=== PATIENT | female | born 1995 | race Caucasian/White ===

== ENCOUNTER 2021-03-13 20:18 | Inpatient (IN) ==
[2021-03-13] MEDS ORDERED: LACTATED RINGER'S 1,000 ML IV PRN (20:45)
[2021-03-13] MEDS ORDERED: OXYTOCIN 30 UNITS/500 ML BAG IV PRN (20:45)
[2021-03-13] MEDS ORDERED: PENICILLIN G POTASSIUM 6 MU in DEXTROSE 5% 250 ML IV STA (20:51)
[2021-03-13] MEDS ORDERED: PATIENT'S HEIGHT AND/OR WEIGHT NEEDED SCH (21:00)
--- NOTE | 2021-03-13 21:11 | History & Physical Report ---
Date of Service March 13, 2021 Assessment & Plan (1) Active labor at term: (2) Post term over 40 weeks: (3) Group beta Strep positive: Plan: admit, iv, labs. pcn for gbs positive. states she wants epidural, consult anesthesia. History of Present Illness Chief Complaint: regular painful ctx. Primary Care Provider: Aníbal Mccabe 26yo at 40+wks ega presents to L&D with above cc. SHe notes some on and off mucus d/c since her evaluation this am. She notes ctx are painful now about q3-4min. PNC c/b 1. echo done due to 1/2 sibling with CHD--> wnl 2. GBS Pos urine PNL rh pos, ri, GBS pos OBH: x 1 GYNH: nl paps no stds. Allergies Allergy/AdvReac Type Severity Reaction Status Date / Time No Known Allergies Allergy Verified 03/13/21 20:30 Home Medications Medication Instructions Recorded Confirmed Type prenat.vits,tracie,[id number] 1 tab PO DAILY 07/21/20 03/13/21 History Tums 1 tab PO UNKNOWN PRN 03/13/21 03/13/21 History Patient History Medical History (Updated 03/13/21 @ 21:10 by Awa Lainez MD, FACOG) Asthma Varicella vaccination Surgical History S/P wisdom tooth extraction Family History Brother Congenital heart defect Denies family history of Ovarian cancer Breast cancer Colorectal cancer Social History (Updated 07/21/20 @ 09:59 by Val Freeman) Smoking Status: Never smoker Hx Alcohol Use: No Hx Substance Use: No Preferred Language: Malay Mysql Dba Required: No Beliefs That Will Affect Care: None marital status: marital status details: Avinash Kwan (24) [phone] Current Living Situation: Spouse and Family Current Living Situation Comment: lives with spouse, son, 2 dogs current occupational status: unemployed current occupation: homemaker Feels Safe at Home: Yes Review of Systems as per Subjective / HPI Physical Exam Constitutional: WD/WN, vitals as above Respiratory: normal respiratory effort, lungs clear to auscultation Cardiovascular: Rate/Rhythm: regular rate and regular rhythm Gastrointestinal (Abdomen): soft gravid nt efw 7-8# Musculoskeletal: no edema nontender calves Neurologic: grossly normal Psychiatric: A+Ox3, euthymic affect Genitourinary: Manual OB Exam: + cervical dilation 6 cm, + cervical effacement 100% and + station (bulging membranes) -2 OB Exam Monitor Tracing: + external FHT monitor used, + external uterine monitor used (q4), + category I and + normal FHT variability Results & Data ([facility]) Vital Signs (Past 12 Hours) Vital Signs Temp Pulse Resp BP 03/13/21 20:35 98.1 F 74 18 130/83 03/13/21 20:29 74 130/83 Coding Level of Care Code None Diagnoses Active labor at term Post term over 40 weeks O48.0 Group beta Strep positive B95.1
[2021-03-13] MEDS ORDERED: ePHEDrine sulfate 50 MG/ML AMP ONE (21:29)
[2021-03-13] MEDS ORDERED: SODIUM CHLORIDE 0.9% INJ 10 ML VIAL ONE (21:29)
[2021-03-13] MEDS ORDERED: BUPIVACAINE 0.25% 30 ML VIAL ONE (21:29)
[2021-03-13] MEDS ORDERED: fentaNYL citrate 100 MCG/2 ML VIAL ONE (21:30)
[2021-03-13] MEDS ORDERED: fentaNYL 2MCG/ML ROPIVACAINE 1.25MG/ML 100 ML BAG EPI ONE (21:30)
[2021-03-13 21:36] LABS: Hematocrit (blood only) 39.3 % (37-47); Hemoglobin 13.3 g/dL (12.0-16.0); Mean Corpuscular Hemoglobin 31.7 pg (25-34); Mean Corpuscular Hgb Conc 33.8 g/dL (32-36); Mean Corpuscular Volume 93.8 fL (80-100); Mean Platelet Volume 10.8 fL (7.4-10.4); Platelet Count 239 K/uL (130-400); RDW Coefficient of Variation 13.5 % (11.5-14.5); RDW Standard Deviation 46.5 fL (36.4-46.3); Red Blood Count 4.19 M/uL (4.2-5.4); White Blood Count 11.11 K/uL (4.8-10.8)
--- NOTE | 2021-03-13 22:23 | Anesthesiology Consultation ---
Date of Service March 13, 2021 Assessment & Plan (1) Encounter for pre-operative examination: Chart Review Chart Review: Patient NOT seen in Pre Admission Testing and Acceptable Risk for Labor Epidural Consults Requested none ASA ASA2 Proposed Anesthesia Anesthesia Type: Labor Epidural Risk / Benefits Reviewed With: PT / POA / Parent / Guardian, Accepts Plan and Informed Consent Obtained History Height/Weight Height: 5 ft 6 in Weight: 78.018 kg Allergies Allergy/AdvReac Type Severity Reaction Status Date / Time No Known Allergies Allergy Verified 03/13/21 20:30 Medications Home Medications Medication Instructions Recorded Confirmed Last Taken prenat.vits,tracie,six-[id number] 1 tab PO DAILY 07/21/20 03/13/21 03/12/21 20:00 Tums 1 tab PO UNKNOWN PRN 03/13/21 03/13/21 03/13/21 08:00 Active Medications Generic Name Dose Route Start Last Admin Trade Name Freq PRN Reason Stop Dose Admin Lactated Ringer's 1,000 mls @ 125 mls/hr 03/13/21 20:45 03/13/21 20:55 Lr IV 03/15/21 20:44 125 mls/hr .Q8H PRN Administration L&D Protocol Protocol Past Medical History Medical History (Updated 03/13/21 @ 22:23 by Tushar Wheat MD) Asthma Varicella vaccination Exercise / Class Metabolic Activity II 4-5 Yardwork/Stairs/Walk up hill Past Family History Family History Brother Congenital heart defect Denies family history of Ovarian cancer Breast cancer Colorectal cancer Past Surgical History Surgical History S/P wisdom tooth extraction Past Anesthesia History No Hx of Anesthesia Complications and No Family Hx of Anesthesia Complications History of PONV No Hx of PONV and No Hx of Motion Sickness Social History Smoking Status: Never smoker Hx Alcohol Use: No Hx Substance Use: No substance use type: does not use Physical Exam Vital Signs Last Vital Signs Temp 36.7 C 03/13/21 20:35 Pulse 93 H 03/13/21 22:20 Resp 18 03/13/21 20:35 BP 120/62 03/13/21 22:20 Pulse Ox 99 03/13/21 22:17 ENMT Mouth: no dentition abnormality Thyromental Distance: > or= 3.5 Finger Breadths Mallampati Class: II Neck normal visual inspection Respiratory normal respiratory effort Auscultation: lungs clear to auscultation bilaterally Cardiovascular Rate/Rhythm: regular rate and regular rhythm Psychiatric Orientation: alert Testing Laboratory Results 03/13/21 21:01
[2021-03-13] MEDS ORDERED: NALBUPHINE HCL INJ 10 MG/ML AMP IV PRN (22:24)
[2021-03-13] MEDS ORDERED: fentaNYL 2MCG/ML ROPIVACAINE 1.25MG/ML 100 ML BAG EPI PRN (22:24)
[2021-03-13] MEDS ORDERED: ePHEDrine sulfate 50 MG/ML AMP IV PRN (22:24)
[2021-03-13] MEDS ORDERED: diphenhydrAMINE 50 MG/ML VIAL IV PRN (22:24)
[2021-03-13] MEDS ORDERED: ONDANSETRON INJ 2 MG/ML 2 ML VIAL IV PRN (22:24)
[2021-03-13] MEDS ORDERED: NALOXONE HCL 0.4 MG/1 ML VIAL/CARP IV PRN (22:24)
[2021-03-13] MEDS ORDERED: NALOXONE HCL 1 MG in SODIUM CHLORIDE 0.9% 1000ML 1,000 ML IV PRN (22:24)
[2021-03-13] MEDS ORDERED: PROMETHAZINE HCL 6.25 MG in SODIUM CHLORIDE 0.9% 50 ML IV PRN (22:24)
[2021-03-13] MEDS ORDERED: PENICILLIN G POTASSIUM 3 MU in DEXTROSE 5% 100 ML IV PRN (23:47)
--- NOTE | 2021-03-14 02:05 | Labor Progress Brief Note ---
Date of Service March 14, 2021 Subjective pt with urge to push. called by nursing 2nd dose of abx just infused and srom, clear fluid. sve per nurse 10cm Constitutional: as per Subjective / HPI Assessment & Plan (1) Post term over 40 weeks: (2) Active labor at term: (3) Group beta Strep positive: Plan: pt with good efforts with pushing, cont 2nd stage. fhts categ 1. Physical Exam Genitourinary: Manual OB Exam: + cervical dilation 10 cm, + cervical effacement 100% and + station + 1 OB Exam Monitor Tracing: + external FHT monitor used, + external uterine monitor used (q2), + category I and + normal FHT variability good effort with pushing Results & Data ([facility]) Vital Signs (Past 12 Hours) Vital Signs Temp Pulse Resp BP Pulse Ox 03/14/21 01:58 109 H 85 L 03/14/21 01:57 121 H 99 03/14/21 01:53 90 93 03/14/21 01:52 102 H 100 03/14/21 01:47 89 99 03/14/21 01:42 96 H 99 03/14/21 01:41 91 H 118/55 L 03/14/21 01:37 100 H 97 03/14/21 01:32 81 96 03/14/21 01:27 75 95 03/14/21 01:25 83 103/57 L 03/14/21 01:22 79 96 03/14/21 01:17 75 97 03/14/21 01:12 78 106/55 L 96 03/14/21 01:07 74 96 03/14/21 01:02 74 96 03/14/21 00:57 76 97 03/14/21 00:55 75 92/55 L 03/14/21 00:52 83 96 03/14/21 00:49 98.4 F 16 03/14/21 00:47 85 99 03/14/21 00:42 89 98 03/14/21 00:40 82 99/56 L 03/14/21 00:37 80 96 03/14/21 00:32 76 96 03/14/21 00:27 83 97 03/14/21 00:25 82 117/66 03/14/21 00:22 80 98 03/14/21 00:17 84 98 03/14/21 00:12 94 H 98 03/14/21 00:11 90 120/71 03/14/21 00:07 97 H 98 03/14/21 00:02 88 99 03/13/21 23:57 87 99 03/13/21 23:56 85 132/86 03/13/21 23:52 88 100 03/13/21 23:47 85 99 03/13/21 23:42 80 99 03/13/21 23:40 80 115/64 03/13/21 23:37 70 98 03/13/21 23:32 75 100 03/13/21 23:27 79 99 03/13/21 23:25 70 117/61 03/13/21 23:22 77 99 03/13/21 23:17 73 98 03/13/21 23:12 71 98 03/13/21 23:11 75 111/60 03/13/21 23:10 98.4 F 18 03/13/21 23:07 84 98 03/13/21 23:02 79 100 03/13/21 22:57 79 98 03/13/21 22:56 88 127/73 03/13/21 22:52 75 98 03/13/21 22:47 75 97 03/13/21 22:42 82 124/70 99 03/13/21 22:37 85 99 03/13/21 22:32 85 97 03/13/21 22:27 86 98 03/13/21 22:25 81 128/66 03/13/21 22:22 84 98 03/13/21 22:20 93 H 120/62 03/13/21 22:18 86 119/64 03/13/21 22:17 87 99 03/13/21 22:14 83 142/83 H 03/13/21 22:12 94 H 99 03/13/21 22:07 65 100 03/13/21 22:02 86 98 03/13/21 21:57 92 H 98 03/13/21 21:52 81 98 03/13/21 21:47 84 99 03/13/21 21:42 87 98 03/13/21 21:37 70 99 03/13/21 21:32 70 99 03/13/21 21:27 85 98 03/13/21 21:22 81 99 03/13/21 20:35 98.1 F 74 18 130/83 10/31/21 20:29 74 130/83 Coding Level of Care Code None Diagnoses Post term over 40 weeks O48.0 Active labor at term Group beta Strep positive B95.1
--- NOTE | 2021-03-14 04:41 | Delivery Summary ---
Vaginal Delivery Summary Date of Service March 14, 2021 Vaginal Delivery Summary The patient dilated to complete and pushed to deliver a viable male infant Apgars 8 and 9 via over intact perineum. Mouth and nose bulb suctioned at perineum. Shoulders and body delivered with ease. Infant was vigorous and crying at . Cord clamped at 30 seconds of life and to maternal abdomen where the cord was then doubly clamped and cut. Placenta delivered spontaneously and intact, three-vessel cord. Hemostasis achieved with dilute pitocin and uterine massage. Small periclitoral tear was bleeding and required a single interrupted suture of 3-0 vicryl for excellent hemostasis. Cervix and sulci intact. EBL 300 cc. Mother and baby stable recovery. [facility] Vaginal Delivery Charge Vaginal Delivery Codes: 76985 global code for the antepartum, delivery, and post- Delivery Type Details:
[2021-03-14] MEDS ORDERED: oxyCODONE/ACETAMINOPHEN 5mg/325mg TAB PO PRN (04:51)
[2021-03-14] MEDS ORDERED: HYDROCORTISONE ACETATE 25 MG SUPP PR PRN (04:51)
[2021-03-14] MEDS ORDERED: SUPERCREAM 0.870% 15 GM JAR EXT PRN (04:51)
[2021-03-14] MEDS ORDERED: DIPHTHERIA/TETANUS/PERTUSSIS 0.5 ML SYR/VIAL IM ONE (04:51)
[2021-03-14] MEDS ORDERED: OXYTOCIN 30 UNITS/500 ML BAG IV PRN (04:51)
[2021-03-14] MEDS ORDERED: OXYTOCIN 20 UNITS in LACTATED RINGER'S 1,000 ML IV SCH (04:51)
[2021-03-14] MEDS ORDERED: BENZOCAINE 20% AER SPR 82.5 GM CAN EXT PRN (04:51)
[2021-03-14] MEDS: PRENATAL VITAMIN 1 TAB PO SCH (08:31)
[2021-03-14] MEDS: DOCUSATE SODIUM 100 MG CAP PO SCH ×2 (08:31→20:15)
--- NOTE | 2021-03-14 09:30 | Anesthesia Procedure Note ---
Date of Service March 14, 2021 Anesthesia Post Epidural Note Vital Signs Vital Signs: Temp Pulse Resp BP Pulse Ox 36.7 C 71 16 129/81 76 L 03/14/21 07:55 03/14/21 07:55 03/14/21 07:55 03/14/21 07:55 03/14/21 04:18 Notes Mental Status: alert / awake / arousable and participated in evaluation Nausea / Vomiting: adequately controlled Pain: adequately controlled Airway Patency, RR, SpO2: stable & adequate BP & HR: stable & adequate Hydration State: stable & adequate Neuraxial Anesthesia: was administered and sensory block is resolving Anesthetic Complications: no major complications apparent and Pt Satisfied with anesthetic care Epidural: Removed without complications and With tip intact
[2021-03-14] MEDS: IBUPROFEN 600 MG TAB PO PRN ×3 (10:29→22:22)
[2021-03-14] MEDS: ACETAMINOPHEN 325 MG TAB PO PRN ×2 (12:36→19:52)
[2021-03-15] MEDS: IBUPROFEN 600 MG TAB PO PRN ×2 (05:01→11:32)
--- NOTE | 2021-03-15 06:38 | Obstetrical Progress Note ---
Date of Service <Lucia Turner DO - Last Filed: 03/15/21 06:59> March 15, 2021 Assessment & Plan <Lucia Turner DO - Last Filed: 03/15/21 06:59> (1) Encounter for care and examination after delivery: 26 yo post op day1 from [facility], doing well. -Continue routine post care. -vital signs reviewed and WNL (Tmax 36.4) -Blood Type O+, GBS+, Rubella Immune -Encourage ambulation, monitor and control pain with Motrin, tylenol PRN, resume regular diet, monitor lochia -encourage breast feeding -hemoglobin 13.3 -patient comfortable with going home today Day #:: 1 <Chelsy Law, - Last Filed: 03/15/21 07:51> (1) Encounter for care and examination after delivery: Subjective <Lucia Turner - Last Filed: 03/15/21 06:59> Ambulation: ambulating normally Voiding: no voiding problems Passing Gas:: Yes Diet Tolerance:: regular diet Lochia:: Small Feeding Type:: breast feeding Current Pain Level(1-10): 1 (pain well controlled on medication) Review of Systems Denies fever, chills, sweats Denies shortness of breath, difficulty breathing, chest pain, palpitations, chest pressure. Denies breast pain. Denies dysuria. Denies headache or changes in vision. Physical Exam <Lucia Turner - Last Filed: 03/15/21 06:59> General: Alert, oriented. No acute distress. Cardiac: Regular rate and rhythm, no murmurs/rubs/gallops. Respiratory: Clear to auscultation bilaterally a/p, no wheezes/rales/rhonchi. No increased work of breathing. Symmetrical chest rise. No respiratory distress. Abdomen: Soft, nontender, nondistended. Bowel sounds present. Uterus: Uterine fundus firm, palpable at umbilicus. Lower Extremities: No lower extremity edema or swelling. No deep calf pain. Guzman's negative bilaterally.. Results & Data ([facility]) <Lucia Turner - Last Filed: 03/15/21 06:59> Vital Signs (Past 12 Hours) Vital Signs Temp Pulse Resp BP Pulse Ox 03/15/21 00:30 36.4 C L 73 16 114/74 98 03/14/21 19:50 36.4 C L 66 17 115/72 98 <Chelsy Law, - Last Filed: 03/15/21 07:51> Co-Signing Physician Notes Resident Physician Supervision Note: I was present with Dr. Turner during the history and exam. I discussed the case with the resident and agree with the findings and plan as documented in the note. Any exceptions or clarifications are listed here: PPD#1 doing well. DC home today, instructions reviewed. Followup 6w. Documented By: Chelsy Law DO Resident Activity Tracking <Lucia Turner, - Last Filed: 03/15/21 06:59> Resident Involvement: Resident Care Provided Care Provided: OB Delivery
[2021-03-15] MEDS: ACETAMINOPHEN 325 MG TAB PO PRN (07:36)
[2021-03-15] MEDS: PRENATAL VITAMIN 1 TAB PO SCH (09:12)
[2021-03-15] MEDS: DOCUSATE SODIUM 100 MG CAP PO SCH (09:13)
== END 2021-03-15 12:31 | disposition home or self-care (01) | DRG 768 ==
LOC: OPB 20:18 → 4S1 20:19 → 4S2 03-14 06:45